=== PATIENT | female | born 2005 | race Caucasian/White ===

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

== ENCOUNTER 2023-01-22 16:27 | Emergency (ER) | payer OTHER, SELFPAY ==
[2023-01-22 16:29] VITALS: BP 133/77; PULSE 87; RESP 18; TEMP 36.3; O2SAT 100
--- NOTE | 2023-01-22 16:47 | ED.URI ---
HPI - URI/Sore Throat General Chief Complaint: Upper Respiratory Infection Stated Complaint: Headache,Sore Throat,Congestion Time Seen by Provider: 01/22/23 16:37 Source: patient and RN notes reviewed Mode of arrival: ambulatory Limitations: no limitations History of Present Illness HPI Narrative: Patient presents today complaining of sore throat since yesterday with nasal congestion and sinus headache that started today. She currently rates her headache 04/29 and has been taking Sudafed without relief. When asked if she took anything for her headache, patient states, ?I forgot I had anything in my cubby at work to take. ? Denies history of migraines. Not her worst headache ever. History of, ?a year-round allergies?, for which he takes Claritin daily. States mother is home today with nasal congestion and cold symptoms. Related Data Home Medications Medication Instructions Recorded Confirmed loratadine 10 mg tablet 20 mg PO BID 09/18/22 01/22/23 sertraline 50 mg tablet 25 mg DAILY 09/18/22 01/22/23 Allergies Allergy/AdvReac Type Severity Reaction Status Date / Time doxycycline AdvReac Mild Hives Verified 01/22/23 16:28 Penicillins AdvReac Mild Hives Verified 01/22/23 16:28 Review of Systems Review of Systems: CONSTITUTIONAL: Denies body aches, fever, chills, or sweats. EYES: Denies visual changes, redness, or discharge. ENT: Denies rhinorrhea,or otalgia.+ sore throat, congestion CARDIOVASCULAR: Denies chest pain, palpitations, or edema. RESPIRATORY: Denies cough or dyspnea. GASTROINTESTINAL: Denies abdominal pain, nausea, vomiting, or diarrhea. GENITOURINARY: Denies dysuria or hematuria. SKIN: Denies rash, itching, or wounds. MUSCULOSKELETAL: Denies back pain, joint pain, or myalgia. NEUROLOGIC: Denies numbness, tingling, or weakness.+ headache PSYCH: Denies depression or anxiety. [facility] Past Medical History Medical History Seasonal allergies Comments At time of signature, I have reviewed and agree with nursing past medical, surgical, social and family history unless otherwise noted. Please see nursing chart for further information. There is no relevant family history pertinent to the presenting complaint Exam Narrative: GENERAL: Mildly ill-appearing, well-nourished, and in no acute distress. HEAD: Normocephalic, atraumatic. EYES: EOMI. No redness or drainage. Conjunctivae normal. ENT: Mucous membranes pink and moist. Nares congested with rhinorrhea. TMs normal bilaterally. Throat normal. Uvula midline. NECK: Normal AROM. Supple. No lymphadenopathy. CHEST: No respiratory distress. Clear to auscultation. HEART: Regular rate and rhythm. No murmur appreciated. Normal peripheral pulses. EXTREMITIES: Normal range of motion. No edema. SKIN: Warm, dry, no rash. Capillary refill normal. Normal skin turgor. NEURO: No focal deficits. Alert and oriented x3. Gait steady. PSYCH: Normal affect. No signs of depression or anxiety. Course Course Level of Care: Express Care Visit Vital Signs Vital signs: Vital Signs Temperature 97.3 F L 01/22/23 16:29 Pulse Rate 87 01/22/23 16:29 Respiratory Rate 18 01/22/23 16:29 Blood Pressure 133/77 01/22/23 16:29 Pulse Oximetry 100 01/22/23 16:29 Oxygen Delivery Room Air 01/22/23 16:29 Temperature 97.3 F L 01/22/23 16:29 Pulse Rate 87 01/22/23 16:29 Respiratory Rate 18 01/22/23 16:29 Blood Pressure 133/77 01/22/23 16:29 Pulse Oximetry 100 01/22/23 16:29 Oxygen Delivery Room Air 01/22/23 16:29 Reviewed. Pt has been instructed to follow up with her PCP regarding her elevated blood pressure today. MDM - URI/Sore Throat MDM Narrative Medical decision making narrative: Patient declined strep swab. Symptoms likely viral. Offered prescription for ibuprofen, but patient has declined. Anticipatory guidance given. Differential Diagnosis Differential diagnos
== END 2023-01-22 16:50 | disposition home or self-care (01) ==
PROVIDERS: Emergency Provider Nurse Practitioner
DX: J06.9 Acute upper respiratory infection, unspecified (principal); R51.9 Headache, unspecified; F41.9 Anxiety disorder, unspecified; F32.A Depression, unspecified
CPT/HCPCS: 99211; G0463

== ENCOUNTER 2023-06-17 13:43 | Emergency (ER) | payer OTHER, SELFPAY ==
--- NOTE | 2023-06-17 13:48 | ED.URI ---
HPI - URI/Sore Throat General Chief Complaint: Upper Respiratory Infection Stated Complaint: Cough,Congestion,Nausea Source: patient and RN notes reviewed History of Present Illness HPI Narrative: 18 yo F presents to urgent care with complaints of watery diarrhea x 3 weeks. Pt reports vomiting x 2 weeks and congestion and sinus issues x 1 week. Pt reports left sided abdomen pain. States she is able to keep down some food and water but will have diarrhea every time she eats or drinks anything. Denies any fevers, chills, dysuria, back pain or SOB. Pt has tried OTC anti-diarrheal medication without relief. Related Data Home Medications Medication Instructions Recorded Confirmed No Home Medications 06/17/23 06/17/23 Allergies Allergy/AdvReac Type Severity Reaction Status Date / Time doxycycline AdvReac Mild Hives Verified 06/17/23 14:01 Penicillins AdvReac Mild Hives Verified 06/17/23 14:01 Review of Systems Review of Systems: Pertinent positives and pertinent negatives per HPI. [facility] Past Medical History Medical History Seasonal allergies Comments At the time of my signature, I reviewed and agree with the nursing past medical, surgical, social, and family history. There is no relevant family history pertinent to the patient complaint. Exam Narrative: GENERAL: This is a well-nourished, well-developed patient, in no apparent distress. HEAD: normocephalic, atraumatic. EYES: Sclera clear/white. Vision is grossly intact. EARS: External ears normal, auditory canals clear and without drainage, TMs normal without perforation. Hearing grossly intact. NOSE: External nose normal with no obvious nasal discharge, nares without redness, no rhinorrhea. THROAT: Mucous membranes moist, posterior pharynx clear. NECK: Neck supple, non-tender without lymphadenopathy, masses or thyromegaly. CARDIOVASCULAR: Regular rate and rhythm without murmurs, gallops, or rubs. RESPIRATORY: Clear to auscultation. Breath sounds equal bilaterally. No wheezes, rales, or rhonchi. GASTROINTESTINAL: Abdomen soft, tender to left mid/lower quadrant, nondistended. Bowel sounds are active. No hepato-splenomegaly, or palpable masses. No guarding. SKIN: warm, intact with no suspicious lesions or rash, good texture and turgor. NEURO: awake, alert, and oriented to person, place and time. There were no obvious focal neurologic abnormalities. BACK: Nontender without deformity or crepitus. No flank tenderness. Course Course Level of Care: Express Care Visit Vital Signs Vital signs: Vital Signs Oxygen Delivery Room Air 06/17/23 13:46 Temperature 97.9 F 06/17/23 13:50 Pulse Rate 90 06/17/23 13:50 Respiratory Rate 18 06/17/23 13:50 Blood Pressure 131/78 06/17/23 13:50 Pulse Oximetry 98 06/17/23 13:50 Oxygen Delivery Room Air 06/17/23 13:50 reviewed MDM - URI/Sore Throat MDM Narrative Medical decision making narrative: Hcg negative. UA negative. Strep negative. Given pt's length of time for symptoms, left sided abdominal pain, and reports of dizziness, it is recommended she be seen in the ER. Pt agrees and states she will go to [place] [facility]. Report called to Dr. Amos at [place] [facility] who accepts pt. Pt stable. VSS. Pt going by private vehicle. Differential Diagnosis Differential diagnosis: Likely upper respiratory infection, sinusitis, pharyngitis and other (gastroenteritis, diverticulitis, dehydration, UTI, , ) Lab Data Attestation: I reviewed the patient's lab results. Labs: UCG Bedside Result Negative Reference Range: Negative Strep Screen Presumptive Negative *(Reference Range: Negative)* Urine Glucose Negative Reference Range: Negative Urine Bilirubin
[2023-06-17 13:50] VITALS: BP 131/78; PULSE 90; RESP 18; TEMP 36.6; O2SAT 98
== END 2023-06-17 14:30 | disposition short-term general hospital (02) ==
PROVIDERS: Emergency Provider Nurse Practitioner Family
DX: R10.32 Left lower quadrant pain (principal); R11.10 Vomiting, unspecified; R19.7 Diarrhea, unspecified
CPT/HCPCS: 81003; 81025; 87081; 87880; 99213; G0463

== ENCOUNTER 2023-06-17 15:01 | Emergency (ER) | payer OTHER, SELFPAY ==
--- NOTE | ~2023-06-17 | CT_ITS ---
EXAMINATION: CT abdomen pelvis w con INDICATION: Left lower quadrant pain TECHNIQUE: Computed tomographic images of the abdomen and pelvis were obtained after the administrati on of 100 cc of Omnipaque 350 intravenous contrast. The dose-length product (DLP) was 567.45 mGy-cm. Automated exposure control and iterative reconstruction technique were employed. COMPARISON: None available FINDINGS: Minimal dependent atelectasis is present in the lung bases. The heart size is normal. The l iver, spleen, pancreas, gallbladder, and adrenal glands are normal. The kidneys are unremarkable. No pathologically enlarged abdominal or pelvic lymph nodes are identified. No free intraperitoneal gas o r evidence of bowel obstruction. There is a tiny umbilical hernia containing fat. IMPRESSION: 1. No CT correlate for the patient's symptoms. Reviewed, dictated and finalized at location F.
[2023-06-17 15:05] VITALS: BP 143/89; PULSE 102; RESP 16; TEMP 36.5; O2SAT 98
[2023-06-17 16:34] LABS: Basophils Percent Auto 0.2 % (0.2-1.2); Eosinophils Absolute Auto 0.1 K/mm3 (0-0.3); Eosinophils Percent Auto 0.6 % (0-4.4); Hematocrit 40.9 % (37.0-47.0); Hemoglobin 13.6 g/dL (12.0-15.0); Immature Granulocyte Absolute 0.03 K/mm3 (0.00-0.031); Immature Granulocyte Percent A 0.3 % (0-0.5); Lymphocytes Absolute Auto 2.49 K/mm3 (0.9-3.2); Lymphocytes Percent Auto 24.5 % (18.3-44.2); Mean Corpuscular HGB Conc 33.3 g/dl (32-36); Mean Corpuscular Volume 96.2 fl (80-100); Monocytes Absolute Auto 0.5 K/mm3 (0.1-0.6); Monocytes Percent Auto 4.5 % (2.6-8.5); Neutrophils Absolute Auto 7.1 K/mm3 (1.3-6.7); Neutrophils Percent Auto 69.9 % (45.5-73.1); Platelet Count Result 310 k/mm3 (150-375); Red Blood Count 4.25 M/mm3 (4.2-5.4); White Blood Count 10.2 K/mm3 (4.5-10.0)
[2023-06-17 16:35] LABS: Appearance Urine Clear (Clear); Blood Urine Negative (Negative); Color Urine Yellow (Yellow); Glucose Urine UA Negative (Negative); Ketones Urine Negative (Negative); Protein Urine Negative (Negative); Specific Grav Ur 1.014 (1.001-1.035); pH Urine 7.5 (5.0-9.0)
[2023-06-17 16:36] LABS: Bilirubin Urine Negative (Negative); Leukocyte Esterase Ur Negative LEU/UL (Negative); Nitrate Urine Negative (Negative); Urobilinogen Urine 0.2 mg/dL (<2.0)
[2023-06-17 16:41] LABS: Add Urine Microscopic? NO
[2023-06-17 16:43] LABS: Alanine Aminotransferase 23 U/L (6-35); Albumin Level 4.3 g/dL (3.5-5.1); Alkaline Phosphatase 83 U/L (38-126); Anion Gap 9 mmol/L (8-16); Aspartate Amino Transferase 22 U/L (14-36); Bilirubin,Total 0.5 mg/dL (0.2-1.3); Blood Urea Nitrogen 9 mg/dL (7-17); Calcium 8.9 mg/dL (8.4-10.2); Carbon Dioxide 25 mmol/L (22-30); Chloride 104 mmol/L (98-107); Estimated CRCL calculation 124 ml/min; Estimated Glomerular Filt Rate > 60; Glucose 93 mg/dL (65-110); Lipase 32 U/L (23-300); Potassium 3.9 mmol/L (3.4-5.0); Sodium 138 mmol/L (137-145)
[2023-06-17 16:51] VITALS: O2SAT 100
--- NOTE | 2023-06-17 17:18 | ED.ABDPAIN ---
HPI - Abdominal Pain General Chief Complaint: Abdominal Pain Stated Complaint: ABDOMINAL PAIN/SINUS ISSUES Time Seen by Provider: 06/17/23 17:01 History of Present Illness HPI narrative: 18-year-old female with a history of allergies reports for evaluation for abdominal pain and diarrhea for multiple weeks. Patient reports watery diarrhea 3 times a day for the past 3 weeks and left lower quadrant abdominal pain. She denies aggravating or alleviating factors. No nausea, vomiting, hematochezia or melena. Denies recent ABX use, surgeries or hospitalizations, camping or travel. LMP 06/15/2023. She denies dysuria or hematuria, vaginal discharge or concern for STDs. She is also reporting sinus congestion, sore throat and sinus headaches for the past week. She takes Claritin daily and has also been using Sudafed and Tylenol without relief. She does see an saturator, however she has not been seen for 3 years and states she probably needs to get in soon . She denies cough, fever, back pain. Related Data Allergies Allergy/AdvReac Type Severity Reaction Status Date / Time doxycycline AdvReac Mild Hives Verified 06/17/23 14:01 Penicillins AdvReac Mild Hives Verified 06/17/23 14:01 Review of Systems Review of Systems: CONSTITUTIONAL: Denies fever, chills EYES: Denies visual changes, redness, or discharge. ENT: See HPI CARDIOVASCULAR: Denies chest pain, palpitations, or edema. RESPIRATORY: Denies cough or dyspnea. GASTROINTESTINAL: See HPI GENITOURINARY: Denies dysuria or hematuria. SKIN: Denies rash or itching. MUSCULOSKELETAL: Denies back pain, joint pain, or myalgia. NEUROLOGIC: Denies headache, numbness, dizziness, or weakness. PSYCHIATRIC: Denies anxiety or depression. [facility] Past Medical History Medical History Seasonal allergies Exam Narrative: GENERAL: Well-appearing, in no acute distress. Patient resting comfortably in exam bed. She is pleasant and conversational. HEAD: Normocephalic EYES: PERRLA ENT: Nares clear. Mucous membranes moist. Oropharynx without tonsillar hypertrophy, erythema, exudate or other lesions. Bilateral TMs are duong nonbulging. Normal canals. Tenderness over the maxillary and frontal sinuses. NECK: Supple. CHEST: No respiratory distress. Clear to auscultation, no adventitious breath sounds. HEART: Regular rate and rhythm. No murmur heard. Normal peripheral pulses. ABDOMEN: Normal active bowel sounds. Abdomen soft with tenderness in the left lower quadrant. No guarding, rebound or rigidity. No overlying skin changes. No CVA tenderness. EXTREMITIES: Normal range of motion. No edema. SKIN: Warm, dry, no rash. NEURO: No focal deficits. Alert and oriented x3. PSYCH: Normal mood and affect. Course Vital Signs Vital signs: Vital Signs Temperature 97.7 F 06/17/23 15:05 Pulse Rate 102 H 06/17/23 15:05 Respiratory Rate 16 06/17/23 15:05 Blood Pressure 143/89 H 06/17/23 15:05 Pulse Oximetry 98 06/17/23 15:05 Oxygen Delivery Room Air 06/17/23 15:05 Temperature 97.7 F 06/17/23 15:05 Pulse Rate 83 06/17/23 17:50 Respiratory Rate 14 06/17/23 17:50 Blood Pressure 118/87 06/17/23 17:50 Pulse Oximetry 100 06/17/23 17:50 Oxygen Delivery Room Air 06/17/23 16:51 MDM - Abdominal Pain MDM Narrative Medical decision making narrative: 18 y/o F reports for evaluation for sinus congestion, diarrhea and left lower quadrant abdominal pain. See HPI for further history. Vital stable other than mild tachycardia of 102. Exam significant for the above. Patient is largely well-appearing on exam. Labs significant for mild leukocytosis of 10.2. Chemistries unremarkable, specifically no electrolyte abnormalities given reported frequent and prolonged diarrhea. Urinalysis unremarkable, no ketones. COVID and flu are negative. Strep negative. Lipase normal. CT abdomen pelvis unremarkable. Patient re
[2023-06-17] MEDS: KETOROLAC 30 MG/ML VIAL (*BKC) IV PUSH (17:46)
[2023-06-17] MEDS: SODIUM CHLORIDE 0.9% IV 1,000 ML 999 ML IV CONT (17:46)
[2023-06-17 17:50] VITALS: BP 118/87; PULSE 83; RESP 14; O2SAT 100
[2023-06-17 18:41] LABS: Strep Group A RT-PCR NOT DETECTED (Negative)
[2023-06-17 18:51] LABS: Influenza A QL RT-PCR Negative (Negative); Influenza B QL RT-PCR Negative (Negative); SARS-CoV-2 RNA PCR Negative (Negative)
[2023-06-17 19:22] VITALS: BP 119/76; PULSE 71; RESP 15; O2SAT 100
== END 2023-06-17 19:24 | disposition home or self-care (01) ==
PROVIDERS: Emergency Medicine; Emergency Provider Physician Assistant
DX: R19.7 Diarrhea, unspecified (principal); R10.32 Left lower quadrant pain; J01.11 Acute recurrent frontal sinusitis; Z20.822 Contact with and (suspected) exposure to COVID-19
CPT/HCPCS: 36415; 74177; 80053; 81003; 81025; 83690; 85025; 87636; 87651; 96361; 96374; 99284; J1885; J7030; Q9967

== ENCOUNTER 2023-09-27 23:01 | Emergency (ER) | payer SELFPAY ==
--- NOTE | ~2023-09-27 | XR_ITS ---
Portable chest x-ray Comparison: None Clinical History: Syncope Findings: Lungs are clear, without focal consolidation or pleural effusion. Cardiomediastinal silho uette is unremarkable. Bones and soft tissues are unremarkable. Impression: Normal chest. Reviewed, dictated and finalized at location . CUTTER Impression: Normal chest.
[2023-09-27 23:05] VITALS: BP 118/72; PULSE 83; RESP 16; TEMP 36.9; O2SAT 100
[2023-09-27 23:35] VITALS: PULSE 93; RESP 17; O2SAT 100
[2023-09-28 00:05] VITALS: BP 112/78; PULSE 76; RESP 13; O2SAT 100
--- NOTE | 2023-09-28 00:21 | ECG_ITS ---
Measurements Intervals [place] Rate: 87 P: 61 [place]: 134 QRS: 56 QRSD: 70 T: 11 QT: 344 QTc: 415 Interpretive Statements SINUS RHYTHM WITH SINUS ARRHYTHMIA EARLY PRECORDIAL R/S TRANSITION LOW QRS VOLTAGE IN PRECORDIAL LEADS NONSPECIFIC T-WAVE ABNORMALITY- ANTEROLAT/INF LEADS BASELINE ARTIFACT- I, III BORDERLINE ECG NO PREVIOUS ECG AVAILABLE FOR COMPARISON Electronically Signed On 09-28-2023 5:56:24 [employer]INGER by Delmar Haskins D.O.
[2023-09-28 00:28] LABS: Basophils Percent Auto 0.3 % (0.2-1.2); Eosinophils Absolute Auto 0.1 K/mm3 (0-0.3); Eosinophils Percent Auto 0.4 % (0-4.4); Hematocrit 42.6 % (37.0-47.0); Hemoglobin 14.1 g/dL (12.0-15.0); Immature Granulocyte Absolute 0.05 K/mm3 (0.00-0.031); Immature Granulocyte Percent A 0.4 % (0-0.5); Lymphocytes Percent Auto 14.4 % (18.3-44.2); Mean Corpuscular HGB Conc 33.1 g/dl (32-36); Mean Corpuscular Volume 96.8 fl (80-100); Mean Platelet Volume 10.2 fl (7.4-10.4); Monocytes Percent Auto 6.9 % (2.6-8.5); Neutrophils Absolute Auto 10.8 K/mm3 (1.3-6.7); Neutrophils Percent Auto 77.6 % (45.5-73.1); Platelet Count Result 333 k/mm3 (150-375); Red Cell Distribution Width 11.9 % (11.5-14.5); White Blood Count 13.9 K/mm3 (4.5-10.0)
[2023-09-28 00:35] LABS: Alanine Aminotransferase 15 U/L (6-35); Albumin Level 4.3 g/dL (3.5-5.1); Alkaline Phosphatase 96 U/L (38-126); Anion Gap 9 mmol/L (8-16); Aspartate Amino Transferase 25 U/L (14-36); Bilirubin,Total 0.3 mg/dL (0.2-1.3); Blood Urea Nitrogen 9 mg/dL (7-17); Calcium 9.1 mg/dL (8.4-10.2); Carbon Dioxide 30 mmol/L (22-30); Chloride 100 mmol/L (98-107); Estimated CRCL calculation 98 ml/min; Estimated Glomerular Filt Rate > 60; Glucose 105 mg/dL (65-110); Lipase 48 U/L (23-300); Potassium 3.6 mmol/L (3.4-5.0); Sodium 139 mmol/L (137-145)
[2023-09-28] MEDS: PHENYLEPHRINE 1% NA SPR (*BKC) 15 ML BTL 1 SPRAY NASAL (00:36)
[2023-09-28] MEDS: SODIUM CHLORIDE 0.9% IV 1,000 ML 999 ML IV CONT (00:36)
[2023-09-28 00:52] LABS: Lactic Acid Reflex 0.8 mmol/L (0.7-2.0)
[2023-09-28 00:59] VITALS: BP 122/86; BP 127/81; PULSE 87; PULSE 91
[2023-09-28 01:01] VITALS: BP 120/70; PULSE 90
[2023-09-28 01:20] LABS: Influenza A QL RT-PCR Negative (Negative); Influenza B QL RT-PCR Negative (Negative); RSV RNA, RT-PCR Negative (Negative); SARS-CoV-2 RNA PCR Negative (Negative)
--- NOTE | 2023-09-28 01:40 | PC.NURSE ---
Pt able to ambulate with steady gait to restroom for urine sample.
[2023-09-28 01:57] LABS: Appearance Urine Cloudy (Clear); Bacteria Urine 4+ /hpf; Bilirubin Urine 1+ (Negative); Blood Urine 3+ (Negative); Color Urine Dark Yellow (Yellow); Glucose Urine UA Negative (Negative); Ketones Urine Trace mg/dL (Negative); Leukocyte Esterase Ur 2+ LEU/UL (Negative); Nitrate Urine Positive (Negative); Protein Urine 2+ mg/dL (Negative); RBC Urine 51-100 /hpf (0-2); Specific Grav Ur 1.021 (1.001-1.035); Squamous Epithelial Cell Urine Occasional /hpf (Few); WBC Urine >100 /hpf
[2023-09-28 02:06] LABS: Add Urine Microscopic? YES
--- NOTE | 2023-09-28 02:06 | ED.GENADULT ---
HPI - General Adult General Chief complaint: Syncope Stated complaint: syncope, epistaxis Time Seen by Provider: 09/28/23 00:00 History of Present Illness HPI narrative: patient is a 18-year-old female who presents emergency department with chief complaint of syncopal episode. Patient reports she had a coughing episode and then had a syncopal episode the patient struck her face and reports that she had some bleeding from her nose that has subsequently stopped. Patient reports that she has felt weak and run down patient denies fever denies vomiting or diarrhea Related Data Allergies Allergy/AdvReac Type Severity Reaction Status Date / Time doxycycline AdvReac Mild Hives Verified 06/17/23 14:01 Penicillins AdvReac Mild Hives Verified 06/17/23 14:01 Review of Systems Review of Systems: A 10 system review of systems was completed on the patient and is negative except for what is stated in the HPI. Nursing and ancillary documentation was reviewed. [facility] Past Medical History Medical History Seasonal allergies Course Vital Signs Vital signs: Vital Signs Temperature 36.9 C 09/27/23 23:05 Pulse Rate 83 09/27/23 23:05 Respiratory Rate 16 09/27/23 23:05 Blood Pressure 118/72 09/27/23 23:05 Pulse Oximetry 100 09/27/23 23:05 Oxygen Delivery Room Air 09/27/23 23:05 Temperature 36.9 C 09/27/23 23:05 Pulse Rate 90 09/28/23 01:01 Respiratory Rate 13 09/28/23 00:05 Blood Pressure 120/70 09/28/23 01:01 Pulse Oximetry 100 09/28/23 00:05 Oxygen Delivery Room Air 09/28/23 00:19 Medical Decision Making [facility] Narrative Medical decision making narrative: differential diagnosis includes viral syndrome UTI, dysrhythmia, pneumonia electrolyte abnormality dehydration laboratory studies were obtained on the patient showed a white count of 13.9 electrolytes are within normal limits lactic acid was normal urinalysis showed evidence of UTI COVID flu and RSV were negative chest x-ray was within normal limits EKG showed no acute ischemic changes and no dysrhythmia Vital Signs Vital Signs: Vital Signs Temperature 36.9 C 09/27/23 23:05 Pulse Rate 83 09/27/23 23:05 Respiratory Rate 16 09/27/23 23:05 Blood Pressure 118/72 09/27/23 23:05 Pulse Oximetry 100 09/27/23 23:05 Oxygen Delivery Room Air 09/27/23 23:05 Temperature 36.9 C 09/27/23 23:05 Pulse Rate 90 09/28/23 01:01 Respiratory Rate 13 09/28/23 00:05 Blood Pressure 120/70 09/28/23 01:01 Pulse Oximetry 100 09/28/23 00:05 Oxygen Delivery Room Air 09/28/23 00:19 Lab Data 09/28/23 00:14 09/28/23 00:14 Labs: Lab Results 09/28/23 09/28/23 09/28/23 Range/Units 00:14 00:36 01:45 WBC 13.9 H (4.5-10.0) K/mm3 RBC 4.40 (4.2-5.4) M/mm3 Hgb 14.1 (12.0-15.0) g/dL Hct 42.6 (37.0-47.0) % MCV 96.8 (80-100) fl MCH 32.0 (26-34) pg MCHC 33.1 (32-36) g/dl RDW 11.9 (11.5-14.5) % Plt Count 333 (150-375) k/mm3 MPV 10.2 (7.4-10.4) fl Immature Gran % (Auto) 0.4 (0-0.5) % Neut % (Auto) 77.6 H (45.5-73.1) % Lymph % (Auto) 14.4 L (18.3-44.2) % [place] % (Auto) 6.9 (2.6-8.5) % Eos % (Auto) 0.4 (0-4.4) % Baso % (Auto) 0.3 (0.2-1.2) % Lymph # (Auto) 2.00 (0.9-3.2) K/mm3 [place] # (Auto) 1.0 H (0.1-0.6) K/mm3 Eos # (Auto) 0.1 (0-0.3) K/mm3 Baso # (Auto) 0.0 (0.0-0.1) K/mm3 Abs Immat Gran (auto) 0.05 H (0.00-0.031) K/mm3 Absolute Neuts (auto) 10.8 H (1.3-6.7) K/mm3 Absolute Nucleated RBC 0.0 (0.0-0.012) K/mm3 Nucleated RBC % 0.0 (0.0-0.2) % Sodium 139 (137-145) mmol/L Potassium 3.6 (3.4-5.0) mmol/L Chloride 100 (98-107) mmol/L Carbon Dioxide 30 (22-30) mmol/L Anion Gap 9 (8-16) mmol/L BUN 9 (7-17) mg/dL Creatinine 0.80 (0.7-1.0) mg/dL Estim Creat Clear Calc 98
[2023-09-28] MEDS: SULFAMETHOXAZOLE/TRIMETHOPRIM 800/160 MG DS TABLET 1 TAB PO (02:31)
[2023-09-28 02:33] VITALS: BP 117/78; PULSE 106; RESP 20; O2SAT 100
== END 2023-09-28 02:33 | disposition home or self-care (01) ==
PROVIDERS: Emergency Provider Emergency Medicine
DX: N39.0 Urinary tract infection, site not specified (principal); R55 Syncope and collapse; R04.0 Epistaxis; R94.31 Abnormal electrocardiogram [ECG] [EKG]
CPT/HCPCS: 36415; 71045; 80053; 81001; 81025; 83605; 83690; 85025; 87077; 87086; 87186; 87637; 93005; 96360; 99283; A9270; J7030